=== PATIENT | male | born 1975 | race Caucasian/White ===

== ENCOUNTER 2022-01-14 02:23 | Inpatient (IN) | payer OTHER ==
[~2022-01-14] VITALS: Ht 172.7 cm; Wt 86.0 kg
[~2022-01-14 02:23] MED LIST: CARAFATE1 GM/10 ML PO; FLEXERIL 10 MG10 MG PO; IBUPROFEN600 MG PO; LEXAPRO20 MG PO; LOPRESSOR 25 MG25 MG PO; PERCOCET 7.5-31 EACH PO; PROTONIX40 MG PO; VITAMIN B-1100 MG/ML IM; Voltaren Gel 1% TOP; ZOFRAN ODT 4 MG4 MG PO
[2022-01-14 03:09] LABS: HEMOGLOBIN 15.2 gm/dl (14.0-17.5); RED BLOOD COUNT 4.65 M/UL (4.20-5.50); WHITE BLOOD COUNT 6.2 K/UL (4.5-11.0)
[2022-01-14 03:47] LABS: BUN/CREATININE RATIO 10 (0-10)
[2022-01-14] MEDS ORDERED: BACLOFEN5 MG PO (09:22)
[2022-01-15 03:16] LABS: RED BLOOD COUNT 4.36 M/UL (4.20-5.50); WHITE BLOOD COUNT 6.4 K/UL (4.5-11.0)
[2022-01-15 03:53] LABS: BUN/CREATININE RATIO 12 (0-10)
[2022-01-17 08:09] LABS: BUN/CREATININE RATIO 14 (0-10)
[2022-01-17 08:15] LABS: HEMOGLOBIN 14.6 gm/dl (14.0-17.5); RED BLOOD COUNT 4.54 M/UL (4.20-5.50); WHITE BLOOD COUNT 8.5 K/UL (4.5-11.0)
[2022-01-18 06:18] LABS: HEMOGLOBIN 14.2 gm/dl (14.0-17.5); RED BLOOD COUNT 4.41 M/UL (4.20-5.50); WHITE BLOOD COUNT 7.9 K/UL (4.5-11.0)
[2022-01-18 06:32] LABS: BUN/CREATININE RATIO 16 (0-10)
--- NOTE | 2022-01-18 11:11 | NUR ---
Completed teaching of the use of actemra for COVID to patient. Also gave patient a fact sheet of the medication. Patient expressed understanding and agreed that he wanted the medication administered. Medication hung and started. Will continue to monitor patient.
[2022-01-19 04:51] LABS: BUN/CREATININE RATIO 29 (0-10)
[2022-01-19 05:23] LABS: HEMOGLOBIN 11.7 gm/dl (14.0-17.5); RED BLOOD COUNT 3.9 M/UL (4.20-5.50)
--- NOTE | 2022-01-20 02:12 | NUR ---
AT SHIFT CHANGE PATIENT STATED HE DID NOT RECIEVE A MEAL TRAY AND THIS WAS THE SECOND TIME IT HAS HAPPENED. HIS MEAL TRAY WAS LOCATED ON THE COUNTER TOP OF THE NURSES STATION, THE MEAL LSLIP WAS TIMED 3:44 PM. THE FOOD WAS HEATED AND THEN TAKEN TO THE PATIENT.
[2022-01-20 06:21] LABS: HEMOGLOBIN 16.4 gm/dl (14.0-17.5); RED BLOOD COUNT 5.07 M/UL (4.20-5.50); WHITE BLOOD COUNT 7.6 K/UL (4.5-11.0)
[2022-01-20 06:37] LABS: BUN/CREATININE RATIO 20 (0-10)
[2022-01-21 08:46] LABS: HEMOGLOBIN 16.4 gm/dl (14.0-17.5); RED BLOOD COUNT 5.11 M/UL (4.20-5.50); WHITE BLOOD COUNT 7.5 K/UL (4.5-11.0)
[2022-01-21 09:05] LABS: BUN/CREATININE RATIO 22 (0-10)
[2022-01-22 07:25] LABS: HEMOGLOBIN 15.8 gm/dl (14.0-17.5); RED BLOOD COUNT 4.96 M/UL (4.20-5.50); WHITE BLOOD COUNT 9.2 K/UL (4.5-11.0)
[2022-01-22 07:58] LABS: BUN/CREATININE RATIO 18 (0-10)
--- NOTE | 2022-01-22 11:18 | NUR ---
received several calls from telemetry of patient pulse ox goes down and everytime I checked patient will verb i have move around and my pulse ox will always go down. patient with no other signs of respiratory distress noted. no sob or any complaints. will continue to monitor
[2022-01-23 06:48] LABS: HEMOGLOBIN 15.9 gm/dl (14.0-17.5); RED BLOOD COUNT 4.96 M/UL (4.20-5.50)
[2022-01-23 06:53] LABS: WHITE BLOOD COUNT 12.6 K/UL (4.5-11.0)
[2022-01-23 07:07] LABS: BUN/CREATININE RATIO 16 (0-10)
--- NOTE | 2022-01-23 09:30 | NUR ---
patient continues pulse ox goes down below 80's with activity and rest at times. respiratory theapist aware of the above and provides breathing treatment as needed.
--- NOTE | 2022-01-23 09:57 | NUR ---
dr. cox seen patient. informed dr. cox of patient low pulse with slight activity and movement. acknowledged
--- NOTE | 2022-01-24 08:44 | NUR ---
informed dr. cox of patient continues pulse ox going down to to 70's with increase activity. dr. cox discussing to patient and condition and treatment providing and what to expect.
[2022-01-25 10:20] LABS: HEMOGLOBIN 16.4 gm/dl (14.0-17.5); RED BLOOD COUNT 5.1 M/UL (4.20-5.50)
[2022-01-25 10:21] LABS: WHITE BLOOD COUNT 18.5 K/UL (4.5-11.0)
[2022-01-25 10:42] LABS: BUN/CREATININE RATIO 34 (0-10)
[2022-01-26 05:24] LABS: HEMOGLOBIN 16.1 gm/dl (14.0-17.5); RED BLOOD COUNT 4.99 M/UL (4.20-5.50)
[2022-01-26 05:44] LABS: BUN/CREATININE RATIO 32 (0-10)
[2022-01-27 05:24] LABS: HEMOGLOBIN 15.8 gm/dl (14.0-17.5); RED BLOOD COUNT 4.88 M/UL (4.20-5.50); WHITE BLOOD COUNT 19.8 K/UL (4.5-11.0)
[2022-01-27 05:50] LABS: BUN/CREATININE RATIO 25 (0-10)
[2022-01-28 05:32] LABS: HEMOGLOBIN 16.4 gm/dl (14.0-17.5); RED BLOOD COUNT 5.09 M/UL (4.20-5.50); WHITE BLOOD COUNT 21.2 K/UL (4.5-11.0)
[2022-01-28 05:56] LABS: BUN/CREATININE RATIO 20 (0-10)
[2022-01-29 05:25] LABS: HEMOGLOBIN 16.4 gm/dl (14.0-17.5); RED BLOOD COUNT 5.26 M/UL (4.20-5.50); WHITE BLOOD COUNT 20.6 K/UL (4.5-11.0)
[2022-01-29 06:26] LABS: BUN/CREATININE RATIO 29 (0-10)
[2022-01-30 05:20] LABS: BUN/CREATININE RATIO 35 (0-10)
[2022-01-31 05:55] LABS: BUN/CREATININE RATIO 45 (0-10)
[2022-01-31 09:49] LABS: HEMOGLOBIN 14.9 gm/dl (14.0-17.5); WHITE BLOOD COUNT 21.3 K/UL (4.5-11.0)
[2022-01-31 09:56] LABS: RED BLOOD COUNT 4.6 M/UL (4.20-5.50)
[2022-02-01 05:43] LABS: HEMOGLOBIN 13.2 gm/dl (14.0-17.5); RED BLOOD COUNT 4.21 M/UL (4.20-5.50)
[2022-02-01 05:45] LABS: WHITE BLOOD COUNT 14.1 K/UL (4.5-11.0)
[2022-02-01 06:34] LABS: BUN/CREATININE RATIO 48 (0-10)
[2022-02-02 06:01] LABS: BUN/CREATININE RATIO 61 (0-10)
[2022-02-03 07:23] LABS: BUN/CREATININE RATIO 61 (0-10)
[2022-02-04 05:11] LABS: BUN/CREATININE RATIO 59 (0-10)
[2022-02-04 13:20] LABS: HEMOGLOBIN 11.9 gm/dl (14.0-17.5); RED BLOOD COUNT 3.85 M/UL (4.20-5.50); WHITE BLOOD COUNT 11.3 K/UL (4.5-11.0)
[2022-02-05 06:55] LABS: HEMOGLOBIN 12.4 gm/dl (14.0-17.5); RED BLOOD COUNT 3.96 M/UL (4.20-5.50); WHITE BLOOD COUNT 9.3 K/UL (4.5-11.0)
[2022-02-05 07:21] LABS: BUN/CREATININE RATIO 48 (0-10)
[2022-02-06 05:26] LABS: BUN/CREATININE RATIO 43 (0-10)
[2022-02-06 05:31] LABS: HEMOGLOBIN 11.7 gm/dl (14.0-17.5); RED BLOOD COUNT 3.65 M/UL (4.20-5.50)
[2022-02-07 04:30] LABS: HEMOGLOBIN 11.1 gm/dl (14.0-17.5); RED BLOOD COUNT 3.51 M/UL (4.20-5.50)
[2022-02-07 04:56] LABS: BUN/CREATININE RATIO 52 (0-10)
[2022-02-07 04:59] LABS: WHITE BLOOD COUNT 6.4 K/UL (4.5-11.0)
[2022-02-08 07:07] LABS: BUN/CREATININE RATIO 46 (0-10)
[2022-02-08 07:35] LABS: HEMOGLOBIN 11.3 gm/dl (14.0-17.5); RED BLOOD COUNT 3.6 M/UL (4.20-5.50)
[2022-02-08 07:36] LABS: WHITE BLOOD COUNT 9.4 K/UL (4.5-11.0)
[2022-02-09 05:30] LABS: RED BLOOD COUNT 3.87 M/UL (4.20-5.50); WHITE BLOOD COUNT 8.3 K/UL (4.5-11.0)
[2022-02-09 05:50] LABS: BUN/CREATININE RATIO 37 (0-10)
[2022-02-10 05:01] LABS: HEMOGLOBIN 12.1 gm/dl (14.0-17.5); RED BLOOD COUNT 3.93 M/UL (4.20-5.50); WHITE BLOOD COUNT 6.6 K/UL (4.5-11.0)
[2022-02-10 05:10] LABS: BUN/CREATININE RATIO 35 (0-10)
[2022-02-11 05:27] LABS: HEMOGLOBIN 11.9 gm/dl (14.0-17.5); RED BLOOD COUNT 3.83 M/UL (4.20-5.50); WHITE BLOOD COUNT 6.9 K/UL (4.5-11.0)
[2022-02-11 05:39] LABS: BUN/CREATININE RATIO 34 (0-10)
[2022-02-12 04:05] LABS: HEMOGLOBIN 11.9 gm/dl (14.0-17.5); RED BLOOD COUNT 3.85 M/UL (4.20-5.50); WHITE BLOOD COUNT 6.6 K/UL (4.5-11.0)
[2022-02-12 04:26] LABS: BUN/CREATININE RATIO 38 (0-10)
[2022-02-13 05:04] LABS: HEMOGLOBIN 11.6 gm/dl (14.0-17.5); RED BLOOD COUNT 3.76 M/UL (4.20-5.50)
[2022-02-13 05:24] LABS: BUN/CREATININE RATIO 42 (0-10)
[2022-02-14 07:34] LABS: BUN/CREATININE RATIO 32 (0-10)
[2022-02-14 07:42] LABS: HEMOGLOBIN 12.2 gm/dl (14.0-17.5); RED BLOOD COUNT 3.9 M/UL (4.20-5.50); WHITE BLOOD COUNT 7.3 K/UL (4.5-11.0)
[2022-02-15 05:20] LABS: RED BLOOD COUNT 3.9 M/UL (4.20-5.50); WHITE BLOOD COUNT 8.9 K/UL (4.5-11.0)
[2022-02-15 05:57] LABS: BUN/CREATININE RATIO 33 (0-10)
[2022-02-15] MEDS ORDERED: POLYETHYLENE GL17 GM GT ×2 (11:05→11:06)
[2022-02-15] MEDS ORDERED: ENOXAPARIN40 MG/0.4 SC (11:05)
[2022-02-15] MEDS ORDERED: IPRAT-ALBUT 0.5-3 ML NEB (11:05)
[2022-02-15] MEDS ORDERED: TYLENOL ELIXIR PO (11:06)
[2022-02-16 04:46] LABS: HEMOGLOBIN 11.1 gm/dl (14.0-17.5); RED BLOOD COUNT 3.53 M/UL (4.20-5.50); WHITE BLOOD COUNT 7.7 K/UL (4.5-11.0)
[2022-02-16 04:53] LABS: BUN/CREATININE RATIO 32 (0-10)
[2022-02-17 04:58] LABS: HEMOGLOBIN 11.2 gm/dl (14.0-17.5); RED BLOOD COUNT 3.57 M/UL (4.20-5.50)
[2022-02-17 05:34] LABS: BUN/CREATININE RATIO 28 (0-10)
[2022-02-18 06:07] LABS: HEMOGLOBIN 11.3 gm/dl (14.0-17.5); RED BLOOD COUNT 3.6 M/UL (4.20-5.50); WHITE BLOOD COUNT 8.5 K/UL (4.5-11.0)
[2022-02-18 06:31] LABS: BUN/CREATININE RATIO 18 (0-10)
[2022-02-19 05:10] LABS: HEMOGLOBIN 11.1 gm/dl (14.0-17.5); RED BLOOD COUNT 3.57 M/UL (4.20-5.50); WHITE BLOOD COUNT 8.7 K/UL (4.5-11.0)
[2022-02-19 05:39] LABS: BUN/CREATININE RATIO 21 (0-10)
[2022-02-20 04:37] LABS: HEMOGLOBIN 10.9 gm/dl (14.0-17.5); RED BLOOD COUNT 3.48 M/UL (4.20-5.50); WHITE BLOOD COUNT 9.2 K/UL (4.5-11.0)
[2022-02-20 05:22] LABS: BUN/CREATININE RATIO 16 (0-10)
[2022-02-21 04:56] LABS: HEMOGLOBIN 12.3 gm/dl (14.0-17.5)
[2022-02-21 04:59] LABS: RED BLOOD COUNT 3.96 M/UL (4.20-5.50)
[2022-02-21 05:39] LABS: BUN/CREATININE RATIO 24 (0-10)
[2022-02-21] MEDS ORDERED: BUDESONIDE0.5 MG/2 M NEB (10:15)
[2022-02-21] MEDS ORDERED: FENOFIBRATE48 MG PO (10:15)
[2022-02-21] MEDS ORDERED: ELIQUIS 5 MG TAB5 MG PEG (10:21)
[2022-02-21] MEDS ORDERED: DURAGESIC 12 M1 EACH TOP (10:21)
[2022-02-21] MEDS ORDERED: MEROPENEM1 GM IV (10:21)
[2022-02-21] MEDS ORDERED: DEXAMETHASONE2 MG PO (10:21)
[2022-02-21] MEDS ORDERED: VALIUM 5 MG TAB5 MG PEG (10:21)
[2022-02-21] MEDS ORDERED: BACLOFEN5 MG PO (10:21)
== END 2022-02-21 14:03 | DRG 4 ==
LOC: ER1 02:23 → M/S 08:27 → CCU 08:27 → CDU 08:27 → M/S 16:11 → CCU 01-24 10:42
PROVIDERS: Family Medicine; Internal Medicine; Internal Medicine Critical Care Medicine; Internal Medicine Pulmonary Disease; ADMIT Internal Medicine
PROC: 8E0ZXY6 Isolation (ICD-10-PCS; principal; 2022-01-14)
PROC: 3E0333Z Introduction of Anti-inflammatory into Peripheral Vein, Percutaneous Approach (ICD-10-PCS; 2022-01-14)
PROC: XW033E5 Introduction of Remdesivir Anti-infective into Peripheral Vein, Percutaneous Approach, New Technology Group 5 (ICD-10-PCS; 2022-01-14)
PROC: 3E03329 Introduction of Other Anti-infective into Peripheral Vein, Percutaneous Approach (ICD-10-PCS; 2022-01-14)
PROC: 5A0955A Assistance with Respiratory Ventilation, Greater than 96 Consecutive Hours, High Flow/Velocity Cannula (ICD-10-PCS; 2022-01-16)
PROC: XW033H5 Introduction of Tocilizumab into Peripheral Vein, Percutaneous Approach, New Technology Group 5 (ICD-10-PCS; 2022-01-18)
PROC: 5A09357 Assistance with Respiratory Ventilation, Less than 24 Consecutive Hours, Continuous Positive Airway Pressure (ICD-10-PCS; 2022-01-24)
PROC: 5A0935A Assistance with Respiratory Ventilation, Less than 24 Consecutive Hours, High Flow/Velocity Cannula (ICD-10-PCS; 2022-01-24)
PROC: 5A09357 Assistance with Respiratory Ventilation, Less than 24 Consecutive Hours, Continuous Positive Airway Pressure (ICD-10-PCS; 2022-01-25)
PROC: 5A0935A Assistance with Respiratory Ventilation, Less than 24 Consecutive Hours, High Flow/Velocity Cannula (ICD-10-PCS; 2022-01-25)
PROC: 5A0935A Assistance with Respiratory Ventilation, Less than 24 Consecutive Hours, High Flow/Velocity Cannula (ICD-10-PCS; 2022-01-26)
PROC: 5A09357 Assistance with Respiratory Ventilation, Less than 24 Consecutive Hours, Continuous Positive Airway Pressure (ICD-10-PCS; 2022-01-26)
PROC: 5A1955Z Respiratory Ventilation, Greater than 96 Consecutive Hours (ICD-10-PCS; 2022-01-27)
PROC: 5A0935A Assistance with Respiratory Ventilation, Less than 24 Consecutive Hours, High Flow/Velocity Cannula (ICD-10-PCS; 2022-01-27)
PROC: 5A09357 Assistance with Respiratory Ventilation, Less than 24 Consecutive Hours, Continuous Positive Airway Pressure (ICD-10-PCS; 2022-01-27)
PROC: 3E043XZ Introduction of Vasopressor into Central Vein, Percutaneous Approach (ICD-10-PCS; 2022-01-28)
PROC: 02HV33Z Insertion of Infusion Device into Superior Vena Cava, Percutaneous Approach (ICD-10-PCS; 2022-01-28)
PROC: B548ZZA Ultrasonography of Superior Vena Cava, Guidance (ICD-10-PCS; 2022-01-28)
PROC: 0B113F4 Bypass Trachea to Cutaneous with Tracheostomy Device, Percutaneous Approach (ICD-10-PCS; 2022-02-13)
PROC: 0DH63UZ Insertion of Feeding Device into Stomach, Percutaneous Approach (ICD-10-PCS; 2022-02-13)
PROC: 3E0G76Z Introduction of Nutritional Substance into Upper GI, Via Natural or Artificial Opening (ICD-10-PCS; 2022-02-13)
PROC: 4A10X4Z Monitoring of Central Nervous Electrical Activity, External Approach (ICD-10-PCS; 2022-02-15)
DX: U07.1 COVID-19 (principal); J12.82 Pneumonia due to coronavirus disease 2019; J15.9 Unspecified bacterial pneumonia; J80 Acute respiratory distress syndrome; R65.20 Severe sepsis without septic shock; G92.8 Other toxic encephalopathy; A41.89 Other specified sepsis; J15.0 Pneumonia due to Klebsiella pneumoniae; E87.2 Acidosis; B37.89 Other sites of candidiasis; J44.1 Chronic obstructive pulmonary disease with (acute) exacerbation; J44.0 Chronic obstructive pulmonary disease with (acute) lower respiratory infection; J95.859 Other complication of respirator [ventilator]; E87.1 Hypo-osmolality and hyponatremia; Z99.11 Dependence on respirator [ventilator] status; F17.210 Nicotine dependence, cigarettes, uncomplicated; F41.9 Anxiety disorder, unspecified; I10 Essential (primary) hypertension; K21.9 Gastro-esophageal reflux disease without esophagitis; K22.4 Dyskinesia of esophagus; E86.0 Dehydration; E87.6 Hypokalemia; K59.00 Constipation, unspecified; R94.5 Abnormal results of liver function studies; U07.0 Vaping-related disorder; E83.42 Hypomagnesemia; Z96.643 Presence of artificial hip joint, bilateral; T38.0X5A Adverse effect of glucocorticoids and synthetic analogues, initial encounter; R73.9 Hyperglycemia, unspecified; T81.82XA Emphysema (subcutaneous) resulting from a procedure, initial encounter; Y84.8 Other medical procedures as the cause of abnormal reaction of the patient, or of later complication, without mention of misadventure at the time of the procedure; Y92.230 Patient room in hospital as the place of occurrence of the external cause; Z96.611 Presence of right artificial shoulder joint; E78.1 Pure hyperglyceridemia; Z98.890 Other specified postprocedural states; Z82.49 Family history of ischemic heart disease and other diseases of the circulatory system; Z88.8 Allergy status to other drugs, medicaments and biological substances; Z79.899 Other long term (current) drug therapy; Z23 Encounter for immunization
CPT/HCPCS: 31500; 36415; 36600; 70450; 71045; 71046; 71250; 74018; 80048; 80053; 80202; 81001; 82550; 82553; 82728; 82803; 82962; 83605; 83615; 83735; 83880; 84100; 84132; 84478; 84484; 85025; 85027; 85379; 85384; 85610; 86140; 87040; 87070; 87077; 87081; 87086; 87186; 87205; 93005; 94002; 94003; 94640; 94660; 94760; 95819; 96365; 96366; 96375; 97110-GP-CQ; 97161; 99284; A6212; C1769; C9113; J0248; J0330; J0456; J0696; J1100; J1205; J1650; J1940; J2020; J2060; J2185; J2248; J2250; J2270; J2405; J2704; J2930; J3370; J3475; J3480; J7030; J7040; J7050; J7070; J7120; Q9967; U0002

== ENCOUNTER → 2022-06-28 | Outpatient (CLI) | payer OTHER ==
[~2022-06-28] MED LIST changes: +BACLOFEN5 MG PO; +BUDESONIDE0.5 MG/2 M NEB; +DEXAMETHASONE2 MG PO; +DURAGESIC 12 M1 EACH TOP; +ELIQUIS 5 MG TAB5 MG PEG; +ENOXAPARIN40 MG/0.4 SC; +FENOFIBRATE48 MG PO; +IPRAT-ALBUT 0.5-3 ML NEB; +MEROPENEM1 GM IV; +POLYETHYLENE GL17 GM GT; +TYLENOL ELIXIR PO; +VALIUM 5 MG TAB5 MG PEG
== END ==
LOC: HEART 5 06-05 09:30
DX: R01.1 Cardiac murmur, unspecified (principal); R06.02 Shortness of breath; I07.1 Rheumatic tricuspid insufficiency; I27.20 Pulmonary hypertension, unspecified
CPT/HCPCS: 93306